=== PATIENT | female | born 1965 | race African-American/Black ===

== ENCOUNTER 2019-09-03 07:44 | Emergency (ER) | payer MEDICAID ==
[~2019-09-03] VITALS: Ht 167.6 cm; Wt 100.0 kg
[2019-09-03] MEDS ORDERED: HYDROCODONE/ACETAMINOPHEN 5/325MG TABLET PO ONE (08:30)
[2019-09-03 10:33] VITALS: BP 138/99
== END 2019-09-03 10:35 | disposition home or self-care (01) ==
LOC: ER 07:44
DX: S82.432A Displaced oblique fracture of shaft of left fibula, initial encounter for closed fracture (principal); I10 Essential (primary) hypertension; V03.10XA Pedestrian on foot injured in collision with car, pick-up truck or van in traffic accident, initial encounter; Y93.89 Activity, other specified; Y92.488 Other paved roadways as the place of occurrence of the external cause
CPT/HCPCS: 29515; 73560; 73610; 99283; Z7610